=== PATIENT | male | born 1985 | race Caucasian/White ===

== ENCOUNTER 2019-11-24 22:26 | Emergency (ER) | payer OTHER, SELFPAY ==
[~2019-11-24] VITALS: Ht 177.8 cm; Wt 144.0 kg
[2019-11-24] MEDS ORDERED: ACETAMINOPHEN 500MG TABLET PO ONE (23:00)
[2019-11-24 23:22] VITALS: BP 134/74
== END 2019-11-24 23:22 | disposition home or self-care (01) ==
LOC: ER 22:26
DX: U07.1 COVID-19 (principal); R43.0 Anosmia; R50.9 Fever, unspecified; R05 Cough
CPT/HCPCS: 99283; C9803; U0003; 99282